=== PATIENT | female | born 1985 | race Caucasian/White ===

== ENCOUNTER 2017-01-24 09:37 | Outpatient (CLI) | payer OTHER ==
[2016-06-23 18:50] VITALS: BP 100/49
--- NOTE | 2017-01-24 23:27 | Diagnostic Imaging Report ---
JOSE ENRIQUE HARRIS [facility] [address] [facility].[address] [id number] Report Submission Date: January 24, 2017 12:27:17 PM CDT Patient Study Name: CK FREGOSO Date: January 24, 2017 10:00:55 AM CDT Modality Type: CR Gender: F Description: CHEST : 85 Institution: [facility] Physician: JOSE ENRIQUE HARRIS Chest - two views Clinical history: Chest heaviness. Difficulty taking a deep breath. Findings: Examination of the chest in PA and lateral views with no prior films for comparison demonstrates the lungs to be clear. Cardiovascular and mediastinal silhouettes are within normal limits. The bony thorax is intact. Impression: 1. Negative chest. Electronically signed on January 24, 2017 12:27:17 PM CDT by: Taqueria GAMEZ
[2017-01-25 11:48] LABS: CANDIDA SPECIES DNA PROBE NEGATIVE (NEGATIVE); GARDNERELLA VAGINALIS NEGATIVE (NEGATIVE); TRICHOMONAS VAGINALIS NEGATIVE (NEGATIVE)
== END 2017-01-24 09:40 ==
LOC: LAB 09:37
PROVIDERS: ATTEND Physician Assistant
DX: R06.02 Shortness of breath (principal); F17.210 Nicotine dependence, cigarettes, uncomplicated
CPT/HCPCS: 36415; 71020; 86703; 87480; 87491; 87510; 87591; 88148; G0143

== ENCOUNTER 2017-12-20 14:54 | Outpatient (CLI) | payer OTHER ==
[2016-06-23 18:50] VITALS: BP 100/49
== END 2017-12-20 14:55 ==
LOC: LAB 14:54
PROVIDERS: ATTEND Physician Assistant
DX: Z11.3 Encounter for screening for infections with a predominantly sexual mode of transmission (principal)
CPT/HCPCS: 36415; 86703

== ENCOUNTER 2018-12-05 20:04 | Emergency (ER) | payer SELFPAY ==
[2018-12-05 20:40] LABS: MEAN CORPUSCULAR HEMOGLOBIN 31.2 pg (28.0-34.0); MONOCYTES % 4.1 % (0.0-11.0)
[2018-12-05 20:41] LABS: BASOPHILS % 0.9 (0.0-1.5); EOSINOPHILS % 12.3 % (0.0-6.8); NEUTROPHILS # 5.9 # k/uL (1.4-7.7)
[2018-12-05] MEDS: ALBUTEROL SULFATE 2.5 MG/3 ML AMPUL.NEB NEB ONE (21:06)
[2018-12-05] MEDS ORDERED: ALBUTEROL 90MCG/PUFF INHALER IH ONE (21:24)
[2018-12-05] MEDS ORDERED: GUAIFENESIN/CODEINE 10 ML S/F LIQUID DOSE CUP PO ONE (21:26)
--- NOTE | 2018-12-05 21:29 | ED Physician Documentation ---
Dyspnea - HISTORIAN Historian: patient - HPI Stated Complaint: SOA when lying down Chief Complaint: Wheezing Onset: days ago Duration: continues in ED Initiating Event: upper respiratory illness. denies: out of meds, sports Severity: moderate Exacerbated By: change in position, laying flat Associated Symptoms: denies: chills, fever, sweating Further Comments: yes (33 year old female patient presents with complaints of dyspnea.) - ROS CONST: other (previous episode; treated with cough medication - did not resolve) EYES/ENT: none GI/: none NEURO/PSYCH: denies: headache MS/SKIN/LYMPH: none - PAST HX Lung Disease: none Allergies/Adverse Reactions: Allergies Allergy/AdvReac Type Severity Reaction Status Date / Time Penicillins Allergy Unknown Rash Verified 12/05/18 20:32 Home Medications: Ambulatory Orders Medication Instructions Recorded Azithromycin [Zithromax] 250 mg PO DAILY #6 tablet 12/05/18 Methylprednisolone [Medrol] 4 mg PO DAILY #1 tab.ds.pk 12/05/18 - SOCIAL HX Smoking History: cigarettes - FAMILY HX Family History: denies: none - VITAL SIGNS Vital Signs: Vital Signs Temp Pulse Resp BP Pulse Ox 98.9 F 99 H 14 119/63 97 12/05/18 20:05 12/05/18 20:05 12/05/18 20:05 12/05/18 20:05 12/05/18 20:05 - REVIEWED ASSESSMENTS Nursing Assessment Reviewed: Yes Vitals Reviewed: Yes Progress - Progress Progress: patient states she feels better after albuterol neb. Education on asthma and treatment plan. ED Results Lab/Radiology - Lab Results Lab Results: Lab Results 12/05/18 20:25 WBC 10.00 K/ul K/ul (4.00-12.00) RBC 4.62 M/ul M/ul (3.90-5.20) Hgb 14.4 g/dL g/dL (12.0-16.0) Hct 43.4 % % (34.5-46.5) MCV 94.0 fl fl (80.0-100.0) MCH 31.2 pg pg (28.0-34.0) MCHC 33.2 g/dL g/dL (30.0-36.0) RDW 13.9 % % (11.3-14.3) Plt Count 230 K/mm3 K/mm3 (130-400) Neut % (Auto) 59.8 % % (39.0-79.0) Lymph % (Auto) 22.9 % % (16.0-50.0) [place] % (Auto) 4.1 % % (0.0-11.0) Eos % (Auto) 12.3 % H % (0.0-6.8) Baso % (Auto) 0.9 (0.0-1.5) Neut # (Auto) 5.9 # k/uL # k/uL (1.4-7.7) Lymph # (Auto) 2.3 # k/uL # k/uL (0.6-4.0) [place] # (Auto) 0.4 # k/uL # k/uL (0.0-0.9) Eos # (Auto) 1.2 # k/uL H # k/uL (0.0-0.6) Baso # (Auto) 0.1 # k/uL # k/uL (0.0-0.5) - Radiology Radiology Impressions: Chest 2 views Date of Exam: December 05, 2018. History: cough/soa x1 month (Hx) / Findings: No comparison studies are provided. Prominence of the bilateral perihilar lung markings are present that may represent bronchitis. The cardiac and mediastinal silhouettes are normal. The trachea is midline. The pulmonary vascularity is normal. No acute infiltrate or effusion is identified. Impression: Prominent bilateral perihilar lung markings that may represent bronchitis. Electronically signed on Dec 05, 2018 8:49:31 PM CDT by: Jenniffer Arteaga - Orders Orders: ED Orders Category Date Time Status CHEST 2VIEW [RAD] Stat Exams 12/05/18 20:19 Taken CBC/PLATELET/DIFF Stat Lab 12/05/18 20:25 Completed Albuterol Sulfate [Ventolin Hfa] Med 12/05/18 21:24 Once 2 puff IH NOW ONE Albuterol Sulfate [Ventolin Soln] Med 12/05/18 21:00 Discontinued 2.5 mg NEB NOW ONE Codeine Phosphate/Guaifenesin [Robitussin AC] Med 12/05/18 21:26 Once 10 ml PO NOW ONE Dyspnea Physical Exam - EXAM General Appearance: mild distress EENT: eye inspection normal, ISMHAEL Respiratory: no resp. distress, breath sounds nml, no pain on inspiration, speaks full sentences CVS: reg. 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 Neuro/Psych: oriented x3, CN's nml as tested, motor nml, sensation nml, mood/affect nml Discharge Clincal Impression: Asthma exacerbation Qualifiers: Asthma severity: mild Asthma persistence: intermittent Qualified Code(s): J45.21 - Mild intermittent asthma with (acute) exacerbation Prescriptions: Azithromycin [Zithromax] 250 mg PO DAILY #6 tablet Methylprednisolone [Medrol] 4 mg PO DAILY #1 tab.ds.pk Referrals: Primary Doctor,No [Primary Care Provider] - 2 Days Additional Instructions: Start a daily allergy medication - nerissa, claritan or 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 Follow up with your doctor next week. STOP SMOKING Condition: Stable Disposition: 01 HOME, SELF-CARE Decision to Admit: NO Decision Time: 21:28
[2018-12-05 22:49] VITALS: BP 122/65
--- NOTE | 2018-12-06 04:57 | Diagnostic Imaging Report ---
DELFINA GARRIDO (SIDE SPLITTER) - ER [facility] [address] [facility].[address] [address] Report Submission Date: Dec 05, 2018 8:49:31 PM CDT Patient Study Name: CK FREGOSO Date: Dec 05, 2018 8:29:50 PM CDT Modality Type: DX Gender: F Description: CHEST 2VIEW : 85 Institution: [facility] Physician: DELFINA GARRIDO (DAVID) - ER Chest 2 views Date of Exam: December 05, 2018. History: cough/soa x1 month (Hx) / Findings: No comparison studies are provided. Prominence of the bilateral perihilar lung markings are present that may represent bronchitis. The cardiac and mediastinal silhouettes are normal. The trachea is midline. The pulmonary vascularity is normal. No acute infiltrate or effusion is identified. Impression: Prominent bilateral perihilar lung markings that may represent bronchitis. Electronically signed on Dec 05, 2018 8:49:31 PM CDT by: Jenniffer GAMEZ
== END 2018-12-05 21:45 | disposition home or self-care (01) ==
LOC: ED 20:04
DX: J45.21 Mild intermittent asthma with (acute) exacerbation (principal); Z72.0 Tobacco use
CPT/HCPCS: 36415; 71046; 85025; 94640; 99283; 99284